=== PATIENT | male | born 1955 | race Two or more races ===

== ENCOUNTER 2020-06-08 14:27 | Outpatient (CLI) | payer OTHER | END 2020-06-08 14:46 | disposition home or self-care (01) | LOC: SONOGRAMA 14:27 | PROVIDERS: ATTEND General Practice | DX: E03.8 Other specified hypothyroidism (principal) ==

== ENCOUNTER 2021-04-10 19:07 | Emergency (ER) | payer OTHER ==
[~2021-04-10] VITALS: Ht 177.8 cm; Wt 90.7 kg
== END 2021-04-10 21:18 | disposition home or self-care (01) ==
LOC: ER 19:07
DX: S05.31XA Ocular laceration without prolapse or loss of intraocular tissue, right eye, initial encounter (principal); W50.4XXA Accidental scratch by another person, initial encounter; Y93.89 Activity, other specified; Y92.099 Unspecified place in other non-institutional residence as the place of occurrence of the external cause

== ENCOUNTER 2022-01-12 14:46 | Inpatient (IN) | payer OTHER ==
[~2022-01-12] VITALS: Ht 180.3 cm; Wt 90.7 kg
--- NOTE | 2022-01-12 15:12 | NUR ---
PACIENTE ALERTA Y ORIENTADO POR VINCE. REFIERE JAK SEMANA CON DOLOR ABDOMINAL QUE AUMENTO JOHANNE EN LA NOCHE.
[2022-01-12] MEDS ORDERED: LEXAPRO5 MG (15:18)
--- NOTE | 2022-01-12 17:34 | NUR ---
LAB TESTS ARE TAKEN ACCORDINGLY AND MEDICATIONS ARE GIVEN ACCORDING TO DOCTOR'S ORDERS.
--- NOTE | 2022-01-12 18:48 | NUR ---
620PM PTE REFIERE SENTIRSE MAL,SE UBICA EN LUNA CON BARANDAS ELEVADAS.SE NOTIFICA A OSIEL WHITMORE. 640PM PTE COMIENZA A GRITAR INDICANDO QUE TIENE MUCHO DOLOR,SE OBSERVA PALIDO Y SUDOROSO,SE NOTIFICA A OSIEL WHITMORE.SE LE ORDENA MOFINA,SE ORIENTA PTE SOBRE TX,SE CANALIZA BAJO MEDIDAS Y SE ADMINISTRA MEDICAMENTO DIMA ORDEN MEDICA.
--- NOTE | 2022-01-12 20:32 | NUR ---
SE ADMINISTRA ZOSYN IV DIMA ORDEN MEDICA Y SE COMIENZA UN 0.9 NSS BAJANDO A 200ML/HR.
[2022-01-13] MEDS ORDERED: ROSUVASTATIN CA20 MG (10:41)
[2022-01-13] MEDS ORDERED: ESCITALOPRAM OX20 MG (10:41)
== END 2022-02-07 21:13 | disposition home or self-care (01) | DRG 341 ==
LOC: ER 14:46 → SURG 22:16 → MEDJ 22:16 → SEC-K 22:16 → SURG 01-13 11:21 → MEDJ 01-22 21:55 → O/R 01-23 16:01 → ICU 01-23 16:03 → SURH 01-30 19:04
PROVIDERS: Surgery; ADMIT Internal Medicine; ATTEND Internal Medicine
PROC: 02HV33Z Insertion of Infusion Device into Superior Vena Cava, Percutaneous Approach (ICD-10-PCS; 2022-01-15)
PROC: 0D9670Z Drainage of Stomach with Drainage Device, Via Natural or Artificial Opening (ICD-10-PCS; 2022-01-15)
PROC: 5A0945A Assistance with Respiratory Ventilation, 24-96 Consecutive Hours, High Flow/Velocity Cannula (ICD-10-PCS; 2022-01-18)
PROC: 0DBB4ZZ Excision of Ileum, Percutaneous Endoscopic Approach (ICD-10-PCS; 2022-01-23)
PROC: 0W9J4ZZ Drainage of Pelvic Cavity, Percutaneous Endoscopic Approach (ICD-10-PCS; 2022-01-23)
PROC: 0BH17EZ Insertion of Endotracheal Airway into Trachea, Via Natural or Artificial Opening (ICD-10-PCS; 2022-01-23)
PROC: 5A1945Z Respiratory Ventilation, 24-96 Consecutive Hours (ICD-10-PCS; 2022-01-23)
PROC: 0DTJ4ZZ Resection of Appendix, Percutaneous Endoscopic Approach (ICD-10-PCS; principal; 2022-01-23 13:00)
PROC: 4A12X4Z Monitoring of Cardiac Electrical Activity, External Approach (ICD-10-PCS; 2022-01-30)
DX: K57.00 Diverticulitis of small intestine with perforation and abscess without bleeding (principal); U07.1 COVID-19; K65.0 Generalized (acute) peritonitis; J95.821 Acute postprocedural respiratory failure; K56.50 Intestinal adhesions [bands], unspecified as to partial versus complete obstruction; J98.11 Atelectasis; K56.7 Ileus, unspecified; Z16.12 Extended spectrum beta lactamase (ESBL) resistance; T81.41XA Infection following a procedure, superficial incisional surgical site, initial encounter; B96.20 Unspecified Escherichia coli [E. coli] as the cause of diseases classified elsewhere; B95.5 Unspecified streptococcus as the cause of diseases classified elsewhere; R09.02 Hypoxemia; F41.9 Anxiety disorder, unspecified; F44.89 Other dissociative and conversion disorders

== ENCOUNTER 2022-07-04 10:31 | Outpatient (CLI) | payer OTHER ==
[~2022-07-04 10:31] MED LIST: ESCITALOPRAM OX20 MG; LEXAPRO5 MG; ROSUVASTATIN CA20 MG
== END 2022-07-04 10:48 | disposition home or self-care (01) ==
LOC: TOM 10:31
PROVIDERS: ATTEND Surgery
DX: Q43.0 Meckel's diverticulum (displaced) (hypertrophic) (principal); L02.211 Cutaneous abscess of abdominal wall; K43.2 Incisional hernia without obstruction or gangrene

== ENCOUNTER 2022-11-29 09:06 | Outpatient (CLI) | payer OTHER | END 2022-11-29 09:32 | disposition home or self-care (01) | LOC: TOM 09:06 | PROVIDERS: ATTEND Surgery | DX: Q43.0 Meckel's diverticulum (displaced) (hypertrophic) (principal); K43.2 Incisional hernia without obstruction or gangrene; L02.211 Cutaneous abscess of abdominal wall ==

== ENCOUNTER 2023-03-25 13:38 | Emergency (ER) | payer OTHER ==
[~2023-03-25] VITALS: Ht 177.8 cm; Wt 90.7 kg
[2023-03-25 16:44] LABS: HEMATOCRIT 42.5 % (39.0-48.0); HEMOGLOBIN 13.7 g/dL (13-16.00); MEAN CELL VOLUME 87.2 fL (80.0-100.00); MEAN CORPUSCULAR HEMOGLOBIN 28.1 pg (27.00-32.0); MEAN CORPUSCULAR HGB CONC 32.3 g/dl (32.0-36.0); PLATELET COUNT 170 K/uL (150-450); RED BLOOD COUNT 4.87 M/uL (4.00-6.00)
[2023-03-25 17:16] LABS: CREATININE SERUM 0.95 mg/dL (0.70-1.30); GFR 79.56; POTASSIUM 3.73 mEq/L (3.5-5.1)
[2023-03-25 18:19] LABS: URINE APPEARANCE Clear; URINE BILIRRUBIN Negative (NEGATIVE); URINE BLOOD Small; URINE COLOR Yellow; URINE GLUCOSE Negative (NEGATIVE); URINE LEUKOCYTE Negative; URINE NITRATE Negative; URINE PROTEIN Negative (NEGATIVE); URINE UROBILINOGEN 0.2 E.U./dl
[2023-03-25 18:20] LABS: URINE BACTERIA 6.2 uL (0.0-1933); URINE EPITHELIAL CELLS 1.5 uL (0.0-38.8); URINE WBC 6.1 uL (0.0-23.2)
== END 2023-03-25 21:29 | disposition home or self-care (01) ==
LOC: ER 13:38
PROVIDERS: Emergency Medicine
DX: N23 Unspecified renal colic (principal)
CPT/HCPCS: 36415; 74176; 96365; 96366; 96372; 99283; J1885; J7030

== ENCOUNTER 2024-03-07 02:36 | Emergency (ER) | payer OTHER ==
[~2024-03-07] VITALS: Ht 170.2 cm; Wt 86.2 kg
[2024-03-07] MEDS ORDERED: KETOROLAC TROMETHAMINE 60 MG VIAL IM STA (05:44)
== END 2024-03-07 05:56 | disposition home or self-care (01) ==
LOC: ER 02:36
DX: K05.30 Chronic periodontitis, unspecified (principal); K03.81 Cracked tooth
CPT/HCPCS: 96372; 99282; J1885

== ENCOUNTER 2024-03-20 12:31 | Outpatient (CLI) | payer OTHER | END 2024-03-20 12:40 | disposition home or self-care (01) | LOC: RAD 12:31 | PROVIDERS: ATTEND Physical Medicine & Rehabilitation | DX: M17.11 Unilateral primary osteoarthritis, right knee (principal); M25.561 Pain in right knee ==

== ENCOUNTER 2024-06-23 09:13 | Outpatient (CLI) | payer OTHER | END 2024-06-23 09:21 | disposition home or self-care (01) | LOC: SONOGRAMA 09:13 | PROVIDERS: ATTEND Urology | DX: N40.0 Benign prostatic hyperplasia without lower urinary tract symptoms (principal); R31.1 Benign essential microscopic hematuria ==

== ENCOUNTER 2025-01-12 12:35 | Outpatient (CLI) | payer OTHER | END 2025-01-12 12:38 | disposition home or self-care (01) | LOC: RAD 12:35 | PROVIDERS: ATTEND Physical Medicine & Rehabilitation | DX: M54.50 Low back pain, unspecified (principal) ==